=== PATIENT | female | born 1995 | race African-American/Black ===

== ENCOUNTER 2017-10-25 16:56 | Inpatient (IN) | payer MEDICAID ==
[~2017-10-25] VITALS: Ht 170.2 cm; Wt 70.4 kg
[2017-10-25 19:08] LABS: BASOPHILS % (AUTO) 0.9 % (0.0-2.0); HEMATOCRIT 39.5 % (36-46); HEMOGLOBIN 13.3 g/dL (12.0-16.0); LYMPHOCYTES # (AUTO) 2.7 K/uL (1.0-4.8); LYMPHOCYTES % (AUTO) 37.2 % (22.0-44.0); MEAN CORPUSCULAR HEMOGLOBIN 29.1 pg (26.0-34.0); MEAN CORPUSCULAR HGB CONC 33.5 G/dL (31.0-37.0); MEAN CORPUSCULAR VOLUME 87 fL (80-100); MONOCYTES # (AUTO) 0.7 K/uL (0.1-1.0); MONOCYTES % (AUTO) 9.4 % (2.0-9.0); NEUTROPHILS # (AUTO) 3.7 K/uL (1.8-7.7); NEUTROPHILS % (AUTO) 50.5 % (40.0-70.0); PLATELET COUNT (AUTO) 215 K/uL (150-450); RED BLOOD CELL COUNT(AUTO) 4.56 MIL/uL (4.00-5.20); RED CELL DISTRIBUTION WIDTH 14.1 % (11.5-14.5)
[2017-10-25 19:17] LABS: ANION GAP 9 mmol/L (8-16); CALCIUM, TOTAL 8.8 mg/dL (8.8-10.5); CARBON DIOXIDE 26 mmol/L (22-29); CHLORIDE 106 mmol/L (98-107); CREATININE 0.78 mg/dL (0.60-1.30); GLOMERULAR FILTR. RATE CALC > 60 mL/min (>60); GLUCOSE,RANDOM 78 mg/dL (70-110); POTASSIUM 3.8 mmol/L (3.5-5.1); SODIUM SERUM 141 mmol/L (136-145); UREA NITROGEN, BLOOD 14 mg/dL (7-18)
[2017-10-25 19:23] LABS: ALANINE AMINOTRANSFERASE 17 U/L (12-78); ALBUMIN 3.7 g/dL (3.4-5.0); ALKALINE PHOSPHATASE 46 U/L (46-116); ASPARTATE AMINOTRANSFERASE 18 U/L (15-37); BILIRUBIN,TOTAL 0.4 mg/dL (0.1-1.0); TOTAL PROTEIN, SERUM 7.4 g/dL (6.4-8.2)
[2017-10-26 00:46] LABS: APPEARANCE,URINE CLEAR (CLEAR); BILIRUBIN,URINE NEGATIVE (NEGATIVE); GLUCOSE, URINE (UA) NEGATIVE (NEGATIVE); KETONES,URINE NEGATIVE (NEGATIVE); LEUKOCYTE ESTERASE ,URINE NEGATIVE (NEGATIVE); NITRATE,URINE NEGATIVE (NEGATIVE); OCCULT BLOOD,URINE NEGATIVE (NEGATIVE); PROTEIN,URINE NEGATIVE (NEGATIVE); UROBILINOGEN,URINE 0.2 mg/dL (<=1.0)
[2017-10-26 00:55] LABS: AMPHET/METH SCREEN,URINE NEGATIVE (NEGATIVE); BARBITURATE SCREEN, URINE NEGATIVE (NEGATIVE); BENZODIAZEPINES SCREEN,URINE NEGATIVE (NEGATIVE); CANNABINOID SCREEN,URINE POSITIVE (NEGATIVE); COCAINE SCREEN,URINE NEGATIVE (NEGATIVE); METHADONE SCREEN, URINE NEGATIVE (NEGATIVE); OPIATE SCREEN,URINE NEGATIVE (NEGATIVE)
[2017-10-26 01:01] LABS: PHENCYCLIDINE SCREEN,URINE NEGATIVE (NEGATIVE)
[2017-10-26 09:01] LABS: CHOL/HDL RATIO 2.5 (3.9-5.7); CHOLESTEROL 144 mg/dL (131-200); HDL CHOLESTEROL 57 mg/dL (40-60); LDL CHOL (CALC.) 83 mg/dL (0-130); TRIGLYCERIDES 22 mg/dL (15-150)
[2017-10-26] MEDS: HALOPERIDOL 5 MG TABLET PO PRN (10:00)
[2017-10-26] MEDS: LORazepam 2 MG TABLET PO PRN (10:00)
[2017-10-26 15:00] VITALS: BP 105/68
[2017-10-27 06:11] VITALS: BP 108/62
[2017-10-27 08:00] VITALS: BP 103/60
[2017-10-27] MEDS ORDERED: IBUPROFEN 400 MG TABLET PO PRN (14:15)
[2017-10-27] MEDS ORDERED: ACETAMINOPHEN 325 MG TABLET PO PRN (14:15)
[2017-10-27 16:06] VITALS: BP 110/65
[2017-10-27] MEDS: QUEtiapine FUMARATE 200 MG TABLET PO SCH (21:00)
[2017-10-28 02:02] VITALS: BP 100/62
[2017-10-28 08:41] VITALS: BP 121/72
[2017-10-28 09:15] LABS: THYROID STIMULATING HORMONE 4.33 uIU/mL (0.36-3.74)
[2017-10-28 09:30] LABS: HEMOGLOBIN A1C 4.8 % (4.5-6.2)
[2017-10-28 16:45] VITALS: BP 112/69
[2017-10-28] MEDS: QUEtiapine FUMARATE 200 MG TABLET PO SCH (20:13)
[2017-10-29 06:35] VITALS: BP 110/64
[2017-10-29 08:19] VITALS: BP 111/81
[2017-10-29] MEDS ORDERED: DiphenhydrAMINE HCL 50 MG/ML VIAL ONE (11:54)
[2017-10-29] MEDS ORDERED: LORazepam 2 MG/ML VIAL ONE (11:54)
[2017-10-29] MEDS ORDERED: HALOPERIDOL LACTATE 5 MG/ML VIAL ONE (11:54)
[2017-10-29] MEDS ORDERED: HALOPERIDOL LACTATE 5 MG/ML VIAL IM ONE (12:15)
[2017-10-29] MEDS ORDERED: LORazepam 2 MG/ML VIAL IM ONE (12:15)
[2017-10-29] MEDS ORDERED: DiphenhydrAMINE HCL 50 MG/ML VIAL IM ONE (12:15)
[2017-10-29 16:31] VITALS: BP 108/61
[2017-10-29] MEDS: QUEtiapine FUMARATE 200 MG TABLET PO SCH (20:27)
[2017-10-30 04:17] VITALS: BP 106/70
[2017-10-30] MEDS: LEVOTHYROXINE SODIUM 50 MCG TABLET PO SCH (06:30)
[2017-10-30 08:55] VITALS: BP 123/73
[2017-10-30] MEDS: HALOPERIDOL 5 MG TABLET PO PRN (13:24)
[2017-10-30] MEDS: LORazepam 2 MG TABLET PO PRN (13:24)
[2017-10-30 16:26] VITALS: BP 114/66
[2017-10-30] MEDS: QUEtiapine FUMARATE 200 MG TABLET PO SCH (21:00)
[2017-10-31] MEDS: LEVOTHYROXINE SODIUM 50 MCG TABLET PO SCH (06:30)
[2017-10-31 06:47] VITALS: BP 100/62
[2017-10-31] MEDS ORDERED: LORazepam 2 MG/ML VIAL ONE (10:32)
[2017-10-31] MEDS ORDERED: HALOPERIDOL LACTATE 5 MG/ML VIAL ONE (10:32)
[2017-10-31] MEDS ORDERED: DiphenhydrAMINE HCL 50 MG/ML VIAL ONE (10:33)
[2017-10-31] MEDS ORDERED: HALOPERIDOL LACTATE 5 MG/ML VIAL IM ONE (10:45)
[2017-10-31] MEDS ORDERED: LORazepam 2 MG/ML VIAL IM ONE (10:45)
[2017-10-31] MEDS ORDERED: DiphenhydrAMINE HCL 50 MG/ML VIAL IM ONE (10:45)
[2017-10-31 14:20] VITALS: BP 100/68
[2017-10-31] MEDS: QUEtiapine FUMARATE 200 MG TABLET PO SCH (21:09)
[2017-11-01 06:22] VITALS: BP 122/71
[2017-11-01] MEDS: LEVOTHYROXINE SODIUM 50 MCG TABLET PO SCH (06:30)
[2017-11-01 08:24] VITALS: BP 104/61
[2017-11-01 16:36] VITALS: BP 123/72
[2017-11-01] MEDS: HALOPERIDOL 5 MG TABLET PO PRN (17:16)
[2017-11-01] MEDS: LORazepam 2 MG TABLET PO PRN (17:16)
[2017-11-01] MEDS: QUEtiapine FUMARATE 200 MG TABLET PO SCH (20:40)
[2017-11-02] MEDS: LEVOTHYROXINE SODIUM 50 MCG TABLET PO SCH (06:30)
[2017-11-02 08:26] VITALS: BP 113/73
[2017-11-02] MEDS: HALOPERIDOL 5 MG TABLET PO PRN (10:13)
[2017-11-02] MEDS: LORazepam 2 MG TABLET PO PRN (10:14)
[2017-11-02 16:27] VITALS: BP 121/68
[2017-11-02 18:27] VITALS: BP 100/66
[2017-11-02] MEDS: QUEtiapine FUMARATE 200 MG TABLET PO SCH (20:07)
[2017-11-03] MEDS: LEVOTHYROXINE SODIUM 50 MCG TABLET PO SCH (06:26)
[2017-11-03 07:09] VITALS: BP 114/64
[2017-11-03 08:23] VITALS: BP 112/73
[2017-11-03 08:54] LABS: BASOPHILS % (AUTO) 0.5 % (0.0-2.0); EOSINOPHILS % (AUTO) 3.4 % (1.0-6.0); HEMATOCRIT 41.1 % (36-46); HEMOGLOBIN 13.8 g/dL (12.0-16.0); LYMPHOCYTES % (AUTO) 51.4 % (22.0-44.0); MEAN CORPUSCULAR HEMOGLOBIN 29.2 pg (26.0-34.0); MEAN CORPUSCULAR HGB CONC 33.5 G/dL (31.0-37.0); MEAN CORPUSCULAR VOLUME 87 fL (80-100); MONOCYTES # (AUTO) 0.6 K/uL (0.1-1.0); MONOCYTES % (AUTO) 9.7 % (2.0-9.0); PLATELET COUNT (AUTO) 198 K/uL (150-450); RED BLOOD CELL COUNT(AUTO) 4.72 MIL/uL (4.00-5.20); RED CELL DISTRIBUTION WIDTH 13.7 % (11.5-14.5)
[2017-11-03] MEDS: QUEtiapine FUMARATE 100 MG TABLET PO SCH ×2 (09:00→09:39)
[2017-11-03 16:00] VITALS: BP 111/68
[2017-11-03] MEDS: LORazepam 2 MG TABLET PO PRN (17:43)
[2017-11-03] MEDS: HALOPERIDOL 5 MG TABLET PO PRN (17:43)
[2017-11-03] MEDS: QUEtiapine FUMARATE 200 MG TABLET PO SCH (20:48)
[2017-11-04] MEDS: LEVOTHYROXINE SODIUM 50 MCG TABLET PO SCH (06:21)
[2017-11-04 08:41] VITALS: BP 124/68
[2017-11-04] MEDS: QUEtiapine FUMARATE 100 MG TABLET PO SCH (09:10)
[2017-11-04] MEDS ORDERED: DiphenhydrAMINE HCL 50 MG/ML VIAL IM ONE (17:15)
[2017-11-04] MEDS ORDERED: HALOPERIDOL LACTATE 5 MG/ML VIAL IM ONE (17:15)
[2017-11-04] MEDS ORDERED: LORazepam 2 MG/ML VIAL IM ONE (17:15)
[2017-11-04] MEDS: QUEtiapine FUMARATE 200 MG TABLET PO SCH (21:22)
[2017-11-05 06:27] VITALS: BP 104/63
[2017-11-05] MEDS: LEVOTHYROXINE SODIUM 50 MCG TABLET PO SCH (06:30)
[2017-11-05 08:18] VITALS: BP 127/72
[2017-11-05] MEDS: QUEtiapine FUMARATE 200 MG TABLET PO SCH ×2 (10:09→20:58)
[2017-11-05] MEDS: LORazepam 2 MG TABLET PO PRN (10:09)
[2017-11-05] MEDS: HALOPERIDOL 5 MG TABLET PO PRN (10:09)
[2017-11-06] MEDS: LEVOTHYROXINE SODIUM 50 MCG TABLET PO SCH (06:30)
[2017-11-06 08:09] VITALS: BP 106/70
[2017-11-06] MEDS: HALOPERIDOL 5 MG TABLET PO PRN ×2 (08:13→18:32)
[2017-11-06] MEDS: QUEtiapine FUMARATE 200 MG TABLET PO SCH ×2 (08:13→21:06)
[2017-11-06] MEDS: LORazepam 2 MG TABLET PO PRN ×2 (08:13→18:32)
[2017-11-06 16:30] VITALS: BP 111/70
[2017-11-07] MEDS: LEVOTHYROXINE SODIUM 50 MCG TABLET PO SCH (06:30)
[2017-11-07 08:13] VITALS: BP 108/84
[2017-11-07] MEDS: LORazepam 2 MG TABLET PO PRN (08:28)
[2017-11-07] MEDS: HALOPERIDOL 5 MG TABLET PO PRN (08:28)
[2017-11-07] MEDS: QUEtiapine FUMARATE 200 MG TABLET PO SCH ×2 (08:28→20:43)
[2017-11-07 16:17] VITALS: BP 109/68
[2017-11-07] MEDS: ZOLPIDEM TARTRATE 10 MG TABLET PO PRN (20:51)
[2017-11-08 05:39] VITALS: BP 117/67
[2017-11-08] MEDS: LEVOTHYROXINE SODIUM 50 MCG TABLET PO SCH (06:30)
[2017-11-08] MEDS: QUEtiapine FUMARATE 200 MG TABLET PO SCH ×2 (08:07→21:03)
[2017-11-08] MEDS: LORazepam 2 MG TABLET PO PRN (08:07)
[2017-11-08] MEDS: HALOPERIDOL 5 MG TABLET PO PRN (08:07)
[2017-11-08 08:31] VITALS: BP 112/66
[2017-11-08 16:05] VITALS: BP 108/74
[2017-11-08] MEDS: ZOLPIDEM TARTRATE 10 MG TABLET PO PRN (22:41)
[2017-11-09 03:39] VITALS: BP 130/67
[2017-11-09] MEDS: LEVOTHYROXINE SODIUM 50 MCG TABLET PO SCH (06:26)
[2017-11-09] MEDS: QUEtiapine FUMARATE 200 MG TABLET PO SCH (08:19)
[2017-11-09] MEDS: LORazepam 2 MG TABLET PO PRN (08:19)
[2017-11-09 08:24] VITALS: BP 115/75
[2017-11-09] MEDS ORDERED: QUET200T29 PO (13:50)
[2017-11-09] MEDS ORDERED: LEVO50 PO (15:11)
== END 2017-11-09 16:45 | disposition home or self-care (01) | DRG 750 ==
LOC: EMS 16:57 → AHU 10-26 13:06 → B2S 10-26 19:49 → B3A 10-29 13:25
DX: F20.0 Paranoid schizophrenia (principal); Z59.0 Homelessness; F41.1 Generalized anxiety disorder; F12.10 Cannabis abuse, uncomplicated; Z79.899 Other long term (current) drug therapy; R00.0 Tachycardia, unspecified
CPT/HCPCS: 76830; 76856; 83036; 84439; 84443; 99285; G0480; J1200; J1630; J2060

== ENCOUNTER 2017-11-16 09:12 | Inpatient (IN) | payer MEDICAID ==
[~2017-11-16] VITALS: Ht 165.1 cm; Wt 69.0 kg
[~2017-11-16 09:12] MED LIST: LEVO50 PO; QUET200T29 PO
[2017-11-16] MEDS ORDERED: QUEtiapine FUMARATE 100 MG TABLET PO PRN (10:00)
[2017-11-16] MEDS ORDERED: LORazepam 2 MG TABLET PO ONE (10:30)
[2017-11-16] MEDS ORDERED: QUEtiapine FUMARATE 200 MG TABLET PO ONE (10:30)
[2017-11-16 10:40] LABS: EOSINOPHILS % (AUTO) 3.2 % (1.0-6.0); HEMATOCRIT 38.6 % (36-46); HEMOGLOBIN 13.1 g/dL (12.0-16.0); LYMPHOCYTES % (AUTO) 34.9 % (22.0-44.0); MEAN CORPUSCULAR HEMOGLOBIN 29.4 pg (26.0-34.0); MEAN CORPUSCULAR VOLUME 87 fL (80-100); MONOCYTES # (AUTO) 0.4 K/uL (0.1-1.0); NEUTROPHILS # (AUTO) 3.1 K/uL (1.8-7.7); NEUTROPHILS % (AUTO) 53.9 % (40.0-70.0); PLATELET COUNT (AUTO) 234 K/uL (150-450); RED BLOOD CELL COUNT(AUTO) 4.47 MIL/uL (4.00-5.20); RED CELL DISTRIBUTION WIDTH 13.7 % (11.5-14.5)
[2017-11-16 10:45] LABS: AMPHET/METH SCREEN,URINE NEGATIVE (NEGATIVE); BARBITURATE SCREEN, URINE NEGATIVE (NEGATIVE); BENZODIAZEPINES SCREEN,URINE NEGATIVE (NEGATIVE); CANNABINOID SCREEN,URINE NEGATIVE (NEGATIVE); COCAINE SCREEN,URINE NEGATIVE (NEGATIVE); METHADONE SCREEN, URINE NEGATIVE (NEGATIVE); OPIATE SCREEN,URINE NEGATIVE (NEGATIVE)
[2017-11-16 10:46] LABS: PHENCYCLIDINE SCREEN,URINE NEGATIVE (NEGATIVE)
[2017-11-16 10:49] LABS: ANION GAP 5 mmol/L (8-16); CALCIUM, TOTAL 8.9 mg/dL (8.8-10.5); CARBON DIOXIDE 30 mmol/L (22-29); CHLORIDE 103 mmol/L (98-107); CREATININE 0.76 mg/dL (0.60-1.30); GLOMERULAR FILTR. RATE CALC > 60 mL/min (>60); GLUCOSE,RANDOM 74 mg/dL (70-110); POTASSIUM 3.6 mmol/L (3.5-5.1); SODIUM SERUM 138 mmol/L (136-145); UREA NITROGEN, BLOOD 12 mg/dL (7-18)
[2017-11-16 10:54] LABS: ALANINE AMINOTRANSFERASE 20 U/L (12-78); ALBUMIN 3.7 g/dL (3.4-5.0); ALKALINE PHOSPHATASE 53 U/L (46-116); ASPARTATE AMINOTRANSFERASE 22 U/L (15-37); BILIRUBIN,TOTAL 0.3 mg/dL (0.1-1.0); TOTAL PROTEIN, SERUM 7.5 g/dL (6.4-8.2)
[2017-11-16 13:20] VITALS: BP 106/58
[2017-11-16] MEDS: NICOTINE 21 MG/24 HOUR PATCH TD SCH (13:41)
[2017-11-16 16:17] VITALS: BP 108/63
[2017-11-16] MEDS: QUEtiapine FUMARATE 200 MG TABLET PO SCH (20:42)
[2017-11-16] MEDS: ZOLPIDEM TARTRATE 10 MG TABLET PO PRN (22:17)
[2017-11-17 06:21] VITALS: BP 101/67
[2017-11-17] MEDS: QUEtiapine FUMARATE 200 MG TABLET PO SCH ×2 (08:40→20:44)
[2017-11-17] MEDS: NICOTINE 21 MG/24 HOUR PATCH TD SCH (08:41)
[2017-11-17] MEDS: LORazepam 2 MG TABLET PO PRN ×2 (08:50→17:25)
[2017-11-17] MEDS: DIVALPROEX SODIUM 500 MG DR TABLET PO SCH ×2 (14:00→20:44)
[2017-11-18 06:55] VITALS: BP 105/64
[2017-11-18 08:13] VITALS: BP 113/68
[2017-11-18] MEDS: LORazepam 2 MG TABLET PO PRN (08:20)
[2017-11-18] MEDS: QUEtiapine FUMARATE 200 MG TABLET PO SCH ×2 (08:20→20:32)
[2017-11-18] MEDS: MULTIVITAMINS WITH MINERALS, THERAPEUTIC TABLET PO SCH (08:20)
[2017-11-18] MEDS: DIVALPROEX SODIUM 500 MG DR TABLET PO SCH ×2 (08:20→20:32)
[2017-11-18] MEDS: NICOTINE 21 MG/24 HOUR PATCH TD SCH (08:20)
[2017-11-18 17:54] VITALS: BP 109/69
[2017-11-19 03:47] VITALS: BP 117/71
[2017-11-19] MEDS: LORazepam 2 MG TABLET PO PRN ×3 (04:25→16:36)
[2017-11-19 08:34] VITALS: BP 105/75
[2017-11-19] MEDS: DIVALPROEX SODIUM 500 MG DR TABLET PO SCH ×2 (08:43→20:18)
[2017-11-19] MEDS: MULTIVITAMINS WITH MINERALS, THERAPEUTIC TABLET PO SCH (08:44)
[2017-11-19] MEDS: QUEtiapine FUMARATE 200 MG TABLET PO SCH ×2 (08:46→20:18)
[2017-11-19] MEDS: NICOTINE 21 MG/24 HOUR PATCH TD SCH (08:50)
[2017-11-19 16:13] VITALS: BP 122/62
[2017-11-19] MEDS: ZOLPIDEM TARTRATE 10 MG TABLET PO PRN (21:05)
[2017-11-20 05:51] VITALS: BP 127/68
[2017-11-20] MEDS: QUEtiapine FUMARATE 200 MG TABLET PO SCH ×2 (08:16→20:14)
[2017-11-20] MEDS: MULTIVITAMINS WITH MINERALS, THERAPEUTIC TABLET PO SCH (08:16)
[2017-11-20] MEDS: DIVALPROEX SODIUM 500 MG DR TABLET PO SCH ×2 (08:16→20:14)
[2017-11-20] MEDS: NICOTINE 21 MG/24 HOUR PATCH TD SCH (08:17)
[2017-11-20 08:31] VITALS: BP 109/67
[2017-11-20] MEDS: LORazepam 2 MG TABLET PO PRN ×2 (08:44→13:34)
[2017-11-20] MEDS ORDERED: DIVA500T35 PO (16:01)
[2017-11-20] MEDS ORDERED: QUET200T29 PO (16:01)
[2017-11-20 16:13] VITALS: BP 127/72
[2017-11-20] MEDS ORDERED: LEVO50 PO (20:28)
[2017-11-20] MEDS: ZOLPIDEM TARTRATE 10 MG TABLET PO PRN (21:04)
[2017-11-21 06:24] VITALS: BP 124/74
== END 2017-11-21 07:15 | disposition home or self-care (01) | DRG 750 ==
LOC: EMS 09:12 → B3A 11:00
DX: F25.0 Schizoaffective disorder, bipolar type (principal); E03.9 Hypothyroidism, unspecified; F19.10 Other psychoactive substance abuse, uncomplicated; Z79.899 Other long term (current) drug therapy
CPT/HCPCS: 99285; G0480